=== PATIENT | female | born 1975 | race Caucasian/White ===

== ENCOUNTER 2021-08-13 11:00 | Outpatient (CLI) | payer OTHER ==
[~2021-08-13 11:00] MED LIST: SYNTHROID200 MCG PO
== END 2021-08-13 14:53 | disposition home or self-care (01) ==
LOC: PPH VACUNA 11:00
PROVIDERS: ATTEND Emergency Medicine Pediatric Emergency Medicine
DX: Z23 Encounter for immunization (principal)